=== PATIENT | female | born 1955 | race Caucasian/White ===

== ENCOUNTER → 2022-01-01 | Outpatient (CLI) | payer MEDICARE, OTHER ==
[~2022-01-01] MED LIST: ACID REDUCER200 MG PO; ASPIRIN81 M1 PO; ATORVASTATIN CA10 MG PO; B 12 PO; BENICAR40 MG PO; CALTRATE 600+D1 EACH PO; CELEBREX PO; CELEBREX100 MG PO; CLONIDINE HCL0.1 MG; Clonazepam PO; DAILY VALUE1 EACH PO; DEXILANT60 MG PO; GABAPENTIN100 MG PO; Iron PO; LEVOTHYROXINE25 MCG PO; LOSARTAN PO; MEGA RED PO; METFORMIN HCL500 MG PO; METOPROLOL SUCC50 MG PO; NORCO 10MG-325MG1 EA PO; PAROXETINE HCL20 MG PO; REGADENOSON 0.4 MG/5 ML SYR IV ONE; TOPIRAMATE50 MG PO; TYLENOL # 31 EA PO; ULTRAM 50MG50 MG PO; VENLAFAXINE HCL75 M1 PO; [UNRECOGNIZED DRUG - OTHER] PO; atrovastatin; losartan PO
== END ==
LOC: NM 09:28
PROVIDERS: ATTEND Family Medicine
DX: R07.9 Chest pain, unspecified (principal); R94.31 Abnormal electrocardiogram [ECG] [EKG]
CPT/HCPCS: 78452; 93017; A9502; J2785